=== PATIENT | female | born 1935 | race Hispanic/Latino ===

== ENCOUNTER 2016-10-15 20:41 | Emergency (ER) | payer MEDICARE ==
[2016-10-15 20:48] VITALS: BMI 24.2
[2016-10-15 20:49] VITALS: RESP 18; TEMP 98.2
[2016-10-15] MEDS ORDERED: DiphenhydrAMINE 50 mg/ml Inj IVP STA ×2 (21:26→21:41)
[2016-10-15] MEDS ORDERED: Sodium Chloride 0.9% 1,000 ML IV SCH ×2 (21:30→21:41)
--- NOTE | 2016-10-15 22:04 | ED PDOC ---
Arrival/HPI - General Historian: Patient, Family EM Caveat: Acuity of Condition - History of Present Illness Time/Duration: Prior to Arrival Symptom Onset: Sudden Symptom Course: Improving, Resolved Quality: Aching Severity Level: 7 Activities at Onset: Rest Context: Sitting - General Chief Complaint: High Blood Pressure Time Seen by Provider: 10/15/16 20:43 - Critical Care Narrative Critical Care (Text): Patient is an 81 year old female with a past medical history of HTN, chronic venous stasis, basal cell carcinoma who presented to [facility] ED 10/15/16 with complaints of headache, vomiting, weakness which started at 19:00. Patient states the headache began suddenly at 7 pm while sitting watching television. Patient states that headache started at the back of her neck and radiated to forehead. Headache was rated at a 7/10. Patient denies any exacerbating factors. Headache was alleviated with 1 Aleve and tums. Patient states she also began vomiting a copious amount when the headache began. She states that the headache reminds her of migraines she had in the past for several decades. Upon arriving to the ED patient stated her nausea diminished and headache localized to her forehead but was a 2/10. Patient denies shortness of breath, chest pain, dizziness, diarrhea. PMD: Dr. Santamaria PMH: HTN, chronic venous stasis, basal cell carcinoma, MVP PSH: none Allergies: NKDA (MARI PATEL) - History of Present Illness Associated Symptoms (Text): vomiting,weakness, chills 10/15/16 23:26 (MARI PATEL) Past Medical History - Provider Review Nursing Documentation Reviewed: Yes - Travel History Have you recently traveled outside [place] w/in the past 3 mons?: No - Reproductive Menopause: Yes - Cardiac Hx Hypertension: Yes - Pulmonary Hx Respiratory Disorders: No - Neurological Hx Meningitis: Yes - HEENT Hx Cataracts: Yes - Renal Hx Renal Disorder: No - Endocrine/Metabolic Hx Endocrine Disorders: No - Hematological/Oncological Hx Blood Disorders: No - Integumentary Hx Dermatological Disorder: No - Musculoskeletal/Rheumatological Hx Musculoskeletal Disorders: No - Gastrointestinal Hx Gastrointestinal Disorders: No - Genitourinary/Gynecological Hx Genitourinary Disorders: No - Psychiatric Hx Psychophysiologic Disorder: No Hx Substance Use: No - Anesthesia Hx Anesthesia: Yes Hx Anesthesia Reactions: No Family/Social History - Physician Review Nursing Documentation Reviewed: Yes Family/Social History: Other (Parents: CAD, Mother: Aortic aneurysm) Smoking Status: Former Smoker Hx Alcohol Use: No Hx Substance Use: No Allergies/Home Meds Allergies/Adverse Reactions: Allergies No Known Allergies Allergy (Verified 10/15/16 20:48) Home Medications: Home Meds Medication Instructions Recorded Confirmed Levothyroxine [Levoxyl] 0.025 mg PO DAILY 10/15/16 10/15/16 Metoprolol Tartrate [Lopressor] 12.5 mg PO DAILY 10/15/16 10/15/16 Simvastatin 5 mg PO DAILY 10/15/16 10/15/16 Review of Systems - Review of Systems Constitutional: absent: Fevers Eyes: absent: Vision Changes, Photophobia ENT: absent: Hearing Changes Cardiovascular: absent: Chest Pain Gastrointestinal: absent: Diarrhea, Hematemesis Neurological: Headache. absent: Dizziness Physical Exam Vital Signs Reviewed: Yes Temperature: Afebrile Blood Pressure: Hypertensive Pulse: Regular Respiratory Rate: Normal Appearance: Positive for: Well-Appearing Pain Distress: Mild Mental Status: Positive for: Alert and Oriented X 3 - Systems Exam Head: Present: Atraumatic, Normocephalic Mouth: Present: Moist Mucous Membranes Respiratory/Chest: Present: Clear to Auscultation, Good Air Exchange. No: Wheezes Cardiovascular: Present: Regular Rate and Rhythm, Normal S1, S2 Abdomen: Present: Normal Bowel Sounds. No: Tenderness, Distention Lower Extremity: Present: Edema Neurological: Present: CN II-XII Intact Psychiatric: Present: Alert, Oriented x 3 Medical Decision Making Reassessment Condition: Improved - Lab Interpretations I have reviewed the lab results: Yes Interpretation: All labs normal - EKG Interpretation Interpreted by ED Physician: Yes Type: 12 lead EKG ED Course and Treatment: Assessment 81 year old female with complaints of headache, vomiting, and weakness. Plan - Patient was discharged; symptoms resolved and labs and imaging were normal - Patient advised to follow up with PMD regarding hospitalization and return to ED if symptoms returned (MARI PATEL) 81F c/o headache that started just 2 hours [employer]. she had migraines for years but has not had one in many years- this feels similar to prior headaches. she improved with rx in the ED. CT negative. neuro exam- no focal deficits, normal strength/sensation, CN II-XII intact, no pronator drift, steady gait. pt comfortable w dc. will f/u w pcp tomorrow. (Hector Orellana) - Lab Interpretations Lab Results: 10/15/16 21:52 10/15/16 21:52 Lab Results 10/15/16 21:52: WBC 10.4, RBC 4.22, Hgb 12.5, Hct 36.5, MCV 86.5, MCH 29.6, MCHC 34.2, RDW 12.1, Plt Count 179, MPV 10.3, Gran % 71.9 H, Lymph % (Auto) 16.8 L, Haywood % (Auto) 6.2 H, Eos % (Auto) 4.8, Baso % (Auto) 0.3, Gran # 7.44 H , Lymph # 1.7, Haywood # 0.6, Eos # 0.5, Baso # 0.03 10/15/16 21:52: Sodium 135, Potassium 4.5, Chloride 99, Carbon Dioxide 28, Anion Gap 13, BUN 14, Creatinine 0.9, Est GFR ( Amer) > 60, Est GFR (Non- Af Amer) > 60, Random Glucose 102, Calcium 9.4, Total Bilirubin 0.5, AST 57 H, ALT 45, Alkaline Phosphatase 104, Troponin I < 0.01, Total Protein 7.1, Albumin 4.0, Globulin 3.1, Albumin/Globulin Ratio 1.3 - RAD Interpretation Radiology Orders: 10/15/16 21:21 HEAD W/O CONTRAST [CT] Stat - Medication Orders Current Medication Orders: Discontinued Medications Diphenhydramine HCl (Benadryl) 25 mg IVP STAT STA Stop: 10/15/16 21:42 Sodium Chloride (Sodium Chloride 0.9%) 1,000 mls @ 500 mls/hr IV .Q2H DUTCH Last Admin: 10/15/16 22:12 Dose: 500 mls/hr Metoclopramide HCl (Reglan) 10 mg IVP STAT STA Stop: 10/15/16 21:27 Last Admin: 10/15/16 21:36 Dose: 10 mg Ondansetron HCl (Zofran Inj) 4 mg IVP STAT STA Stop: 10/15/16 21:25 Last Admin: 10/15/16 21:36 Dose: 4 mg Disposition/Present on Arrival - Present on Arrival Any Indicators Present on Arrival: No History of DVT/PE: No History of Uncontrolled Diabetes: No Urinary Catheter: No History of Decub. Ulcer: No History Surgical Site Infection Following: None - Disposition Have Diagnosis and Disposition been Completed?: Yes Disposition Time: 10:50 Patient Plan: Discharge - Disposition Diagnosis: Headache Disposition: HOME/ ROUTINE Condition: GOOD Discharge Instructions (ExitCare): Acute Headache (ED) Additional Instructions: Please follow up with your doctor. Return to the ER for any worsening symptoms or for any other concerns. Referrals: Vianca West DO [Primary Care Provider] - Follow up with primary Forms: [employer] 2000 (Malay)
[2016-10-15 22:06] LABS: BASO # 0.03 K/mm3 (0.0-2.0); BASO % 0.3 % (0.0-3.0); EOS # 0.5 (0.0-0.7); EOS % 4.8 % (1.5-5.0); GRAN # 7.44 (1.4-6.5); GRAN % 71.9 % (50.0-68.0); HEMATOCRIT 36.5 % (36.0-48.0); LYMPH # 1.7 (1.2-3.4); LYMPH % 16.8 % (22.0-35.0); MEAN CELL VOLUME 86.5 fl (80.0-105.0); MEAN CORPUSCULAR HEMOGLOBIN 29.6 pg (25.0-35.0); MEAN CORPUSCULAR HGB CONC 34.2 g/dl (31.0-37.0); MEAN PLATELET VOLUME 10.3 fl (7.0-11.0); MONO # 0.6 (0.1-0.6); MONO % 6.2 % (1.0-6.0); RED CELL DISTRIBUTION WIDTH 12.1 % (11.5-14.5); WHITE BLOOD COUNT 10.4 10^3/ul (4.5-11.0)
[2016-10-15 22:17] LABS: ALB/GLOB RATIO 1.3 (1.1-1.8); ALKALINE PHOSPHATASE 104 U/L (38-126); ALT/SGPT 45 U/L (7-56); AST/SGOT 57 U/L (14-36); BILIRUBIN,TOTAL 0.5 mg/dL (0.2-1.3); BLOOD UREA NITROGEN 14 mg/dL (7-21); CALCIUM 9.4 mg/dL (8.4-10.5); CARBON DIOXIDE 28 mmol/L (21-33); CHLORIDE 99 mmol/L (98-107); GFR AFRICAN-AMERICAN > 60; GLUCOSE,RANDOM 102 mg/dL (70-110); POTASSIUM 4.5 mmol/L (3.6-5.0); SODIUM 135 mmol/L (132-148); TOTAL PROTEIN 7.1 g/dL (5.8-8.3)
--- NOTE | 2016-10-15 22:17 | CT ---
EXAM: CT Head Without Intravenous Contrast CLINICAL HISTORY: 81 years old, female; Pain; Headache TECHNIQUE: Axial computed tomography images of the head/brain without intravenous contrast. All CT scans at this facility use one or more dose reduction techniques, viz.: automated exposure control; ma/kV adjustment per patient size (including targeted exams where dose is matched to indication; i.e. head); or iterative reconstruction technique. COMPARISON: No relevant prior studies available. FINDINGS: Brain: Mild atrophy. No intracranial hemorrhage. No mass. Several scattered foci of decreased attenuation within periventricular/subcortical white matter. 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 No definite edema. Ventricles: No hydrocephalus. Bones/joints: No acute fracture. Soft tissues: Unremarkable. Vasculature: Mild atherosclerotic disease of intracranial arteries. Sinuses: Scattered minimal mucosal thickening of ethmoid sinuses. Mastoid air cells: No mastoid effusion. Orbits: Unremarkable as visualized. IMPRESSION: 1. Nonspecific white matter changes. Acute infarction may be CT occult within first 24 hours. If a focal deficit persists, consider followup CT or MRI for further evaluation. 2. Incidental/non-acute findings are described above.
[2016-10-15 22:28] LABS: TROPONIN I < 0.01 ng/mL
[2016-10-15 23:19] VITALS: BP 146/84; PULSE 76; O2SAT 99
--- NOTE | 2016-10-16 11:30 | CARD ---
APPROVED REPORT EKG Measurement Heart [id number] <Conclusion> Sinus bradycardia with sinus arrhythmia with 1st degree AV block Anterior infarct, age undetermined Abnormal ECG
== END 2016-10-15 23:21 | disposition home or self-care (01) ==
LOC: ED 20:41
DX: R51 Headache (principal); I10 Essential (primary) hypertension; Z87.891 Personal history of nicotine dependence
CPT/HCPCS: 70450; 80053; 84484; 85025; 93005; 96361; 96374; 96375; 99283; J1200; J2405; J2765; J7040